=== PATIENT | female | born 1965 | race Two or more races ===

== ENCOUNTER 2016-06-04 00:05 | Emergency (ER) | payer MEDICAID, OTHER ==
[~2016-06-04] VITALS: Ht 160 cm; Wt 70.3 kg
--- NOTE | 2016-06-04 00:10 | NUR ---
PT A/OX4 BREATHING EFFORTLESSLY ON ROOM AIR, PT STATES SHE HAS BEEN HVAING ABD PAIN WITH N/V X 1 DAY AND DENIES DIARRHEA, PT FAMILY AT BEDSIDE, IV PLACED, BLOOD DRAWN, PT ON [facility], IN GOWMD Dominic MADE AWARE WILL CONTINUE TO MONITOR.
[2016-06-04] MEDS ORDERED: ONDANSETRON HCL/PF 4 MG/2 ML VIAL ONE (00:26)
[2016-06-04] MEDS ORDERED: IV NS 0.9% 500 ML IV ONE (00:26)
[2016-06-04] MEDS ORDERED: IBUPROFEN 400 MG TABLET ONE (00:26)
[2016-06-04] MEDS ORDERED: IV SET PRIMARY 1 EA INFUS.SET MC ONE (00:26)
[2016-06-04] MEDS: IV NS 0.9% 500 ML BAG IV ONE (00:35)
[2016-06-04] MEDS: ONDANSETRON HCL/PF 4 MG/2 ML VIAL IVP ONE (00:35)
[2016-06-04] MEDS: IBUPROFEN 400 MG TABLET PO ONE (00:36)
[2016-06-04 00:43] LABS: BILIRUBIN,URINE NEGATIVE (NEGATIVE); BLOOD, URINE 2+ Ery/uL (NEGATIVE); COLOR,URINE YELLOW (YELLOW); KETONES,URINE NEGATIVE (NEGATIVE); LEUKOCYTE ESTERASE ,URINE NEGATIVE (NEGATIVE); NITRITE, URINE NEGATIVE (NEGATIVE); PROTEIN,URINE 2+ mg/dl (NEGATIVE); UGLUCOSE 3+ mg/dL (NEGATIVE); UROBILINOGEN,URINE 0.2 EU/dL (0.2)
[2016-06-04 00:44] LABS: BASOPHILS % (AUTO) 0.6 % (0.0-2.0); EOSINOPHILS # (AUTO) 0.1 /CMM (0.0-0.7); EOSINOPHILS % (AUTO) 1.7 % (0.0-6.0); HEMATOCRIT 46 % (33-45); HEMOGLOBIN 15.6 g/dL (11.5-14.8); LYMPHOCYTES # (AUTO) 2.5 /CMM (0.8-4.8); MEAN CORPUSCULAR HEMOGLOBIN 29 PG (26.0-33.0); MEAN CORPUSCULAR HGB CONC 34 g/dl (31.0-36.0); MEAN CORPUSCULAR VOLUME 85 fL (82-100); MONOCYTES # (AUTO) 0.5 /CMM (0.1-1.30); MONOCYTES % (AUTO) 6.3 % (2.0-12.0); NEUTROPHILS # (AUTO) 4.4 /CMM (1.8-8.9); NEUTROPHILS % (AUTO) 58.4 % (43.0-81.0); PLATELET COUNT (AUTO) 219 /CMM (150-450); RDW COEFFICIENT OF VARIATION 14.2 (11.5-15.0); WHITE BLOOD COUNT (AUTO) 7.5 K/uL (4.3-11.0)
[2016-06-04 00:45] LABS: CALCIUM, SERUM 9.6 mg/dL (8.5-10.1); CARBON DIOXIDE 26 mmol/L (21-32); CHLORIDE 103 mmol/L (98-107); CREATININE 0.7 mg/dL (0.6-1.3); GFR 89 mL/min (>60); GLUCOSE 131 mg/dL (74-106); POTASSIUM 3.9 mmol/L (3.5-5.1); SODIUM SERUM 140 mmol/L (136-145); UREA NITROGEN, BLOOD 14 mg/dL (7-18)
[2016-06-04 00:47] LABS: APPEARANCE,URINE CLEAR (CLEAR)
[2016-06-04 00:50] LABS: ADD URINE CULTURE NO; BACTERIA,URINE None seen /HPF (None Seen); WBC,URINE 0-2 /HPF (0-3)
[2016-06-04 00:51] LABS: ALANINE AMINOTRANSFERASE 54 U/L (12-78); ALBUMIN 4.2 g/dL (3.4-5.0); ALKALINE PHOSPHATASE 78 U/L (46-116); ASPARTATE AMINOTRANSFERASE 14 U/L (15-37); BILIRUBIN,DIRECT 0.1 mg/dL (0.0-0.2); BILIRUBIN,TOTAL 0.3 mg/dL (0.2-1.0); LIPASE 449 U/L (73-393); MUCUS,URINE Few /LPF (None Seen); SQUAMOUS EPITHELIAL CELL,UR Few /HPF (None Seen); TOTAL PROTEIN, SERUM 7.5 g/dL (6.4-8.2)
[2016-06-04 00:53] LABS: TROPONIN I < 0.017 ng/mL (0.00-0.056)
[2016-06-04 01:06] LABS: INR 0.96 (0.87-1.13); PROTHROMBIN TIME 10.2 SECS (9.5-12.7)
[2016-06-04 02:26] VITALS: BP 146/90
== END 2016-06-04 02:28 | disposition home or self-care (01) ==
LOC: ER 00:06
DX: K85.90 Acute pancreatitis without necrosis or infection, unspecified (principal); F17.210 Nicotine dependence, cigarettes, uncomplicated; Z88.5 Allergy status to narcotic agent; Z88.6 Allergy status to analgesic agent; E11.9 Type 2 diabetes mellitus without complications
CPT/HCPCS: 36415; 76705; 80048; 80076; 81001; 83690; 84484; 85025; 85730; 93005; 99285; A4606; J2405; J7040; Z7610; 81000-TC

== ENCOUNTER 2017-01-16 21:46 | Emergency (ER) | payer MEDICAID ==
[~2017-01-16] VITALS: Ht 157.5 cm; Wt 83.5 kg
--- NOTE | 2017-01-16 21:50 | NUR ---
PT BIB [facility] TO ER BED 7, C/O FLU LIKE SYMPTOMS AND N/V X 5. 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 PT VSS/RESP EVEN UNLABORED/NAD NOTED/SKIN WARM AND DRY/AOX4. AWAITING MD NEWSOME.
--- NOTE | 2017-01-16 22:10 | NUR ---
AT BEDSIDE SPEAKING WITH PT.
--- NOTE | 2017-01-16 22:15 | NUR ---
20G IV TO L AC USING ASEPTIC TECH, FLUSHES EASILY WITH NS.
[2017-01-16] MEDS ORDERED: ONDANSETRON HCL/PF 4 MG/2 ML VIAL ONE (22:19)
[2017-01-16] MEDS ORDERED: ONDANSETRON HCL/PF 4 MG/2 ML VIAL IV ONE (22:30)
[2017-01-16] MEDS ORDERED: IV NS 0.9% 1,000 ML BAG IV ONE (22:30)
--- NOTE | 2017-01-16 23:28 | NUR ---
IV removed. Catheter intact and site benign. Pressure and 4x4 applied to site. No bleeding noted. Patient discharged to home in stable condition. Written and verbal after care instructions given. Patient verbalizes understanding of instruction. Pt ambulatory with a steady gait.
[2017-01-16 23:29] VITALS: BP 97/129
== END 2017-01-16 23:31 | disposition home or self-care (01) ==
LOC: ER 21:47
DX: E86.0 Dehydration (principal); J06.9 Acute upper respiratory infection, unspecified; R11.0 Nausea; F17.200 Nicotine dependence, unspecified, uncomplicated; E11.9 Type 2 diabetes mellitus without complications; Z88.6 Allergy status to analgesic agent
CPT/HCPCS: 82962; 96361; 96374; 99284; A4606; J2405; J7030 ×2; Z7610

== ENCOUNTER 2018-05-13 23:58 | Emergency (ER) | payer MEDICAID ==
[~2018-05-13] VITALS: Ht 157.5 cm; Wt 72.6 kg
--- NOTE | 2018-05-14 00:10 | NUR ---
URINE COLLECTED AND SENT TO LAB
--- NOTE | 2018-05-14 00:10 | NUR ---
PT JOANNRA FROM HOME C/O UPPER ABDOMINAL PAIN X1 DAY. PT STATES SHE HAD FEW DARK, LOOSE STOOLS TODAY. PT ALSO C/O NAUSEA. PT DENIES SOB, VOMITTING, CHEST PAIN, HEADACHE, DIZZINESS. PT AAOX4. RESPIRATIONS EVEN AND UNLABORED. SKIN WARM AND INTACT. NO ACUTE DISTRESS NOTED. PT PLACED ON MONITOR, WILL CONTINUE TO MONITOR
--- NOTE | 2018-05-14 00:20 | NUR ---
IV INITIATED LEFT AC 18G. LABS DRAWN FROM SITE AND SENT TO LAB. IV INTACT AND PATENT, PLACED ON SALINE LOCK
[2018-05-14] MEDS ORDERED: ONDANSETRON HCL/PF 4 MG/2 ML VIAL ONE (00:39)
[2018-05-14 00:47] LABS: BASOPHILS # (AUTO) 0.1 /CMM (0.0-0.2); BASOPHILS % (AUTO) 0.8 % (0.0-2.0); EOSINOPHILS % (AUTO) 1.2 % (0.0-6.0); HEMATOCRIT 46 % (33-45); HEMOGLOBIN 15.9 g/dL (11.5-14.8); LYMPHOCYTES % (AUTO) 29.3 % (20.0-44.0); MEAN CORPUSCULAR HGB CONC 35 g/dl (31.0-36.0); MEAN CORPUSCULAR VOLUME 88 fL (82-100); MONOCYTES # (AUTO) 0.4 /CMM (0.1-1.30); MONOCYTES % (AUTO) 5.3 % (2.0-12.0); NEUTROPHILS # (AUTO) 4.2 /CMM (1.8-8.9); NEUTROPHILS % (AUTO) 63.4 % (43.0-81.0); PLATELET COUNT (AUTO) 187 /CMM (150-450); RED BLOOD CELL COUNT(AUTO) 5.19 MIL/uL (4.0-5.2); WHITE BLOOD COUNT (AUTO) 6.7 K/uL (4.3-11.0)
[2018-05-14] MEDS ORDERED: ONDANSETRON HCL/PF 4 MG/2 ML VIAL IVP ONE (01:00)
[2018-05-14] MEDS ORDERED: IV NS 0.9% 1,000 ML BAG IV ONE (01:00)
[2018-05-14 01:05] LABS: CALCIUM, SERUM 9.6 mg/dL (8.5-10.1); CARBON DIOXIDE 26 mmol/L (21-32); CHLORIDE 102 mmol/L (98-107); CREATININE 0.6 mg/dL (0.6-1.3); GLUCOSE 186 mg/dL (74-106); POTASSIUM 3.9 mmol/L (3.5-5.1); SODIUM SERUM 142 mmol/L (136-145); UREA NITROGEN, BLOOD 12 mg/dL (7-18)
[2018-05-14 01:08] LABS: APPEARANCE,URINE CLEAR (CLEAR); BILIRUBIN,URINE NEGATIVE (NEGATIVE); BLOOD, URINE 1+ Ery/uL (NEGATIVE); COLOR,URINE YELLOW (YELLOW); KETONES,URINE NEGATIVE (NEGATIVE); LEUKOCYTE ESTERASE ,URINE NEGATIVE (NEGATIVE); NITRITE, URINE NEGATIVE (NEGATIVE); PH,URINE 5.5 (5.0-8.0); PROTEIN,URINE NEGATIVE (NEGATIVE); UGLUCOSE 3+ mg/dL (NEGATIVE); UROBILINOGEN,URINE 0.2 EU/dL (0.2)
[2018-05-14 01:10] LABS: ALANINE AMINOTRANSFERASE 60 U/L (12-78); ALBUMIN 4.3 g/dL (3.4-5.0); ALKALINE PHOSPHATASE 84 U/L (46-116); ASPARTATE AMINOTRANSFERASE 16 U/L (15-37); BILIRUBIN,DIRECT 0.1 mg/dL (0.0-0.2); BILIRUBIN,TOTAL 0.3 mg/dL (0.2-1.0); LIPASE 404 U/L (73-393); TOTAL PROTEIN, SERUM 7.9 g/dL (6.4-8.2)
[2018-05-14 01:49] LABS: WBC,URINE 0-2 /HPF (0-3)
[2018-05-14 01:50] LABS: BACTERIA,URINE Rare /HPF (None Seen); RBC,URINE 0-4 /HPF (0-2); SQUAMOUS EPITHELIAL CELL,UR Rare /HPF (None Seen)
--- NOTE | 2018-05-14 03:35 | NUR ---
PT RETURNED FROM CT
--- NOTE | 2018-05-14 03:53 | NUR ---
MARGARITA CALLED TO READ CT REPORT
--- NOTE | 2018-05-14 04:35 | NUR ---
IV removed. Catheter intact and site benign. Pressure and 4x4 applied to site. No bleeding noted. Patient discharged to home in stable condition. Written and verbal after care instructions given. Patient verbalizes understanding of instruction. ambulatory with a steady gait noted. pt aaox4 no acute distress noted, resp even and unlabored. pt daughter at bedside to take pt home.
[2018-05-14 04:37] VITALS: BP 127/75
== END 2018-05-14 04:38 | disposition home or self-care (01) ==
LOC: ER 05-14 00:02
DX: R10.11 Right upper quadrant pain (principal); E11.9 Type 2 diabetes mellitus without complications; F17.200 Nicotine dependence, unspecified, uncomplicated; R19.7 Diarrhea, unspecified; Z98.890 Other specified postprocedural states; Z88.6 Allergy status to analgesic agent; Z88.5 Allergy status to narcotic agent
CPT/HCPCS: 36415; 71045; 74176; 76705; 80048; 80076; 81001; 83690; 84484; 85025; 85730; 87086; 93005; 96360; 99284; A4606; J2405; J7030; 81000-TC